=== PATIENT | male | born 1950 | race Caucasian/White ===

== ENCOUNTER 2024-09-24 10:07 | Outpatient (AMB) | payer MEDICARE, OTHER, SELFPAY ==
--- NOTE | 2024-09-24 10:36 | HO.NEPHOV_ITS ---
Vital Signs 09/24/24 10:38 Height 5 ft 11 in Weight 196 lb 4 oz BMI 27.4 BP 140/76 H Blood Pressure Location Lt brachial Position Sitting Pulse 76 Pulse Source Pulse Oximeter Pulse Oximetry (%) 99 Oxygen Delivery Method Room Air Intake Visit Reasons: 8 mon follow up-[facility] Leather Fitter Required: No Accompanied by: Self / Same As Patient Allergies lisinopril Allergy (Verified 09/24/24 10:38) Unknown oxycodone Allergy (Verified 09/24/24 10:38) Itching tramadol Allergy (Verified 09/24/24 10:38) Itching HPI Comments Details: I had the privilege of seeing Darwin in follow-up of his chronic kidney disease. He has amyloidosis and is on Vyndamax. He follows up closely with cardiologists in [place]. He has history of partial nephrectomy. He had a TURP procedure done for outlet obstruction. He denies nausea, vomiting, shortness of breath, fever, hematuria, orthostatic symptoms. He does not take any nonsteroidal anti- inflammatories. He maintains good hydration. He feels well. [facility] Medical History (Updated 08/13/24 @ 15:46 by Tammi Alba CNA) Chronic kidney disease, stage 3a Hypertension Surgical History History of prostate surgery History of kidney surgery History of back surgery History of left knee replacement History of total hip replacement History of shoulder surgery History of carpal tunnel release Family History Father Pancreatic cancer Social History Alcohol intake: never Patient Tobacco Use Status: Never used Tobacco Review of Systems Const All systems reviewed & are unremarkable except as noted in HPI and below Physical Exam Vital Signs: Last Vital Signs Pulse 76 09/24/24 10:38 BP 140/76 H 09/24/24 10:38 Pulse Ox 99 09/24/24 10:38 Oxygen Delivery Method Room Air 09/24/24 10:38 BMI result Body Mass Index 27.4 Const General: comfortable and no acute distress Orientation/consciousness: patient oriented x3 HEENT Head: Yes normocephalic Mouth: Normal oral and palatal mucosa present Eyes EOM: EOMs intact bilaterally Neck Neck: Yes supple Resp Auscultation: clear to auscultation bilaterally Cardio Jugular venous distension: no JVD Rate: regular rate GI Palpation (GI): Soft to palpation Auscultation: normal bowel sounds General: Yes no CVA tenderness Back/Spine/Pelvis Back: no CVA tenderness Skin General skin exam: no rashes or lesions noted Neuro General: patient oriented x3 and moves all extremities Extrem General: Yes no pedal edema Results Reviewed Nephrology Results: No Data to Display Assessment & Plan Assessment & Plan (1) Chronic kidney disease, stage 3a: Code(s): N18.31 - Chronic kidney disease, stage 3a Category: Medical (2) Hypertension: Code(s): I10 - Essential (primary) hypertension Category: Medical Qualifiers: Hypertension type: primary hypertension Qualified Code(s): I10 - Essential (primary) hypertension Plan Has chronic kidney disease stage 3. His renal functions are stable. He had extensive workup in the past has been negative. He is known to have amyloidosis and is on Vyndamax. 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 He follows up closely with Dr. Madrid. His blood pressure has been at goal. He avoids nonsteroidal anti-inflammatories and maintain good hydration. I did not make any medication changes today. Follow-up blood work ordered. Answered all questions. Orders: Orders Electrolytes 6 Months I10 - Essential (primary) hypertension, N18.31 - Chronic kidney disease, stage 3a Blood Urea Nitrogen 6 Months I10 - Essential (primary) hypertension, N18.31 - Chronic kidney disease, stage 3a Protein Creatinine Ratio, Ur 6 Months I10 - Essential (primary) hypertension, N18.31 - Chronic kidney disease, stage 3a Calcium 6 Months I10 - Essential (primary) hypertension, N18.31 - Chronic kidney disease, stage 3a Creatinine 6 Months I10 - Essential (primary) hypertension, N18.31 - Chronic kidney disease, stage 3a Coding Level of Care Code Est Pt Level 4 (10160) Diagnoses Chronic kidney disease, stage 3a N18.31 Primary hypertension I10 Hypertension type: primary hypertension
[2024-09-24 10:38] VITALS: BP 140/76; PULSE 76; O2SAT 99; BMI 27.4
--- OUTSIDE RECORDS SUMMARY | 2024-09-24 10:49 | XMS_ITS | Encounter Summary ---
Author Name [facility] Organization [facility] Address [address] [place] [id number] Care Team Providers Care Rn Neurology Name Role Phone HARRY OVALLES Primary Care Provider Unavailabl e Insurance Providers: All historical and current Section Date Range: From patient's date of to the date document was created. This section includes the names of all active insurance providers for the patient. Insurance Provider Type of Coverage Plan Name Start of Policy Coverage End of Policy Coverage Group Number Member ID Insurance Provider's Telephone Number Policy Treviño's Name Patient's Relationship to Policy Treviño [employer] [place] [employer] PREFERRED PROVIDER ORGANIZAT ION (PPO) BASIC FAMIL Y Nov 05, 2009 [id number] EVETTE WEAVER PATIENT [employer] BCBS PRESCRIPT ION CAREM ARK FEPRX PLAN Aug 06, 2010 [id number] EVETTE WEAVER PATIENT MEDICARE (WNR) MEDICARE (M) PART B May 01, 2017 PART B [id number] EVETTE WEAVER PATIENT MEDICARE (WNR) MEDICARE (M) PART A May 01, 2017 PART A [id number] EVETTE WEAVER PATIENT FOR LIFE TFL* May 01, 2017 [id number] EVETTE WEAVER PATIENT Selected Encounter This section includes the information on record at [place] for the Encounter. Date/Time Encounter Type Encounter Description Reason Provider Source Aug 20, 2024 08:30 AM THERAPEUTIC EXERCISES PHYSICAL THERAPY ICD-10-CM M25.562 Pain in left knee ALFONSO BISHOP I[facility] Encounter Template Text not used by [place] Assessments - Encounter Diagnoses This section includes the primary and secondary diagnoses documented for the Encounter. Date/Time Primary/Secondary Diagnosis Diagnosis Name Provider Source Aug 20, 2024 11:45 AM PRIMARY Pain in left knee ALFONSO BISHOP [facility] Plan of Treatment: Future Appointments (+ 6 months) and Future Tests (+/- 45 days) The Plan of Treatment section includes [facility] care activities for the [facility] This section includes future appointments and future orders which are active, pending or scheduled. Future Appointments This section includes appointments that were scheduled to occur 6 months from the date of the Encounter, up to a maximum of 20 appointments. The data comes from all [place] treatment facilities. Appointment Date/Time Appointment Type Appointme nt Facility Name September 04, 2024 01:00 PM [facility] September 17, 2024 01:00 [facility] Oct 01, 2024 09:00 AM [facility] Oct 02, 2024 09:30 AM [facility] Jan 21, 2025 08:30 AM [facility] Social History: Smoking Status (Most current) and Tobacco Use (All prior to encounter date) This section includes the most current, and the historical, smoking and tobacco- related health factors from the [place] facility where the Encounter took place. Current Smoking Status This section includes the most current smoking, or tobacco-related health factor, from the [place] facility where the Encounter took place. Date/Time Current Smoking Status Comment Ede fox Oct 06, 2023 08:30 AM PR-TOBACCO NEVER USED [facility] Tobacco Use History This section includes a history of the smoking, or tobacco-related health factors, that were collected on or before the date of the Encounter. The data comes from the [place] facility where the Encounter took place. Date/Time Smoking Status/Tobacco Use Comment F acility Oct 07, 2022 08:30 AM VA-TOBACCO NEVER USED [facility] Oct 01, 2021 09:00 AM VA-TOBACCO NEVER USED [facility] Oct 02, 2020 08:00 AM VA-TOBACCO NEVER USED [facility] [place] [facility] Aug 09, 2019 01:40 PM VA-TOBACCO NEVER USED [facility] [place] [facility] Jul 27, 2018 12:54 PM VA-TOBACCO NEVER USED [facility] [facility] Dec 01, 2016 08:59 AM LIFETIME NON-TOBACCO USER [facility] Nov 30, 2015 07:56 AM LIFETIME NON-TOBACCO USER [facility] Jun 14, 2007 08:32 AM LIFETIME NON-TOBACCO USER [facility] Encounter Notes: All associated encounter notes This section contains the clinical notes associated to the Encounter. Date/Time Encounter Note(s) Provider Source Aug 20, 2024 11:37 AM PHYSICAL THERAPY NOTE: LOCAL TITLE: PHYSICAL THERAPY STANDARD TITLE: PHYSICAL THERAPY NOTE DATE OF NOTE: AUG 20, 2024@11:37 ENTRY DATE: AUG 20, 2024@11:37:37 AUTHOR: PER BISHOP COSIGNER: URGENCY: STATUS: COMPLETED Initial Evaluation date: Progress Note Date: Treatment #:2 Treatment time: 30' Diagnosis: L knee pain Provider: Bill VERDUGO Treatment Precautions: H/o kidney CA, Prostate CA, Leukemia Patient identified by full name and date of SUBJECTIVE: States no change in symptoms, currently rates the pain at 2-3/10, the knee feels heavy at the end of the day, states that his current knee sleeves slides down to his ankle, has been doing his HEP OBJECTIVE: THERAPEUTIC EXERCISE: MINUTES: 30 mins Nu-step 10 mins L3 - Standing Hip Abduction with Counter Support - Standing Hip Extension with Counter Support - Standing Hip Abduction with Bent Knee - Alternating Step Forward with Support - Side Lunge with Counter Support - Standing Heel Raise with Support MANUAL THERAPY: MINUTES: GAIT TRAINING: MINUTES: NEUROMUSCULAR EDUCATION: MINUTES: OTHER: MINUTES: MODALITIES: MINUTES: [] Contraindication screen completed prior to modality [] Skin intact pre/post SELF CARE/EDUCATION: MINUTES: encouraged to use CP on the knee when his knee is sore at the end of the day Access Code: [email or web address] URL: [email or web address] / Date: 08/20/2024 Prepared by: [place] [facility] Exercises - Seated Hamstring Stretch - 3 x daily - 7 x weekly - 3 sets - 30 hold - Standing Quadriceps Stretch - 3 x daily - 3 sets - 30 hold - Quadricep Stretch with Chair and Counter Support - 3 x daily - 3 reps - 30 hold - Gastroc Stretch on Wall - 3 x daily - 3 reps - 30 hold - Standing Bilateral Gastroc Stretch with Step - 1 x daily - 7 x weekly - 3 sets - 10 reps - Small Range Straight Leg Raise - 1 x daily - 7 x weekly - 3 sets - 10 reps - Seated Piriformis Stretch - 1 x daily - 7 x weekly - 3 sets - 10 reps - Seated Knee Flexion Stretch - 1 x daily - 7 x weekly - 3 sets - 10 reps - Beginner Bridge - 1 x daily - 7 x weekly - 3 sets - 10 reps - Beginner Clam - 1 x daily - 7 x weekly - 3 sets - 10 reps - Sidelying Diagonal Hip Abduction - 1 x daily - 7 x weekly - 3 sets - 10 reps - Standing Hip Abduction with Counter Support - 1 x daily - 7 x weekly - 3 sets - 10 reps - Standing Hip Extension with Counter Support - 1 x daily - 7 x weekly - 3 sets - 10 reps - Standing Hip Abduction with Bent Knee - 1 x daily - 7 x weekly - 3 sets - 10 reps - Alternating Step Forward with Support - 1 x daily - 7 x weekly - 3 sets - 10 reps - Side Lunge with Counter Support - 1 x daily - 7 x weekly - 3 sets - 10 reps - Standing Heel Raise with Support - 1 x daily - 7 x weekly - 3 sets - 10 reps Patient education was provided for all aspects of care during this clinical encounter. ASSESSMENT: Tolerated session well, no c/o increase discomfort, only some mm fatigue PLAN: Pt to be seen 1-2x/week for 4-8 weeks. POC to include: PRECAUTION: active CA no Estim- heat and ice to knee okay next visit begin strengthening for quad and hip - standing incorporate balance, monitor pain response review stretching HEP instruction /es/ MONIK ARANGO LICENSE INSURANCE CLAIMS ASSISTANT Signed: 08/20/2024 11:46 [facility]
== END 2024-09-24 11:05 | disposition home or self-care (01) ==
LOC: HO.HKAS 10:07
PROVIDERS: PCP Nurse Practitioner Family; Visit Provider Internal Medicine Nephrology
DX: N18.31 Chronic kidney disease, stage 3a (principal); I10 Essential (primary) hypertension
CPT/HCPCS: 99214

== ENCOUNTER → 2024-09-24 10:07 | Outpatient (BNVA) | payer MEDICARE, OTHER, SELFPAY | PROVIDERS: PCP Nurse Practitioner Family; Visit Provider Internal Medicine Nephrology | DX: I12.9 Hypertensive chronic kidney disease with stage 1 through stage 4 chronic kidney disease, or unspecified chronic kidney disease (principal); N18.31 Chronic kidney disease, stage 3a | CPT/HCPCS: 99212 ==

== ENCOUNTER 2025-03-25 11:29 | Outpatient (AMB) | payer MEDICARE, OTHER, SELFPAY ==
--- NOTE | 2025-03-25 11:50 | HO.NEPHOV ---
Vital Signs 03/25/25 11:51 Height 5 ft 11 in Weight 190 lb 8 oz BMI 26.6 BP 140/90 H Blood Pressure Location Lt brachial Position Sitting Pulse 63 Pulse Source Pulse Oximeter Pulse Oximetry (%) 100 Oxygen Delivery Method Room Air Intake Visit Reasons: 6 mo follow up-[facility] Program Coordinator For Residence Life Required: No Accompanied by: Spouse Allergies lisinopril Allergy (Verified 03/25/25 11:51) Unknown oxycodone Allergy (Verified 03/25/25 11:51) Itching tramadol Allergy (Verified 03/25/25 11:51) Itching HPI Comments Details: I had the privilege of seeing Darwin in follow-up of his chronic kidney disease. He has amyloidosis and is on Vyndamax. He follows up closely with cardiologists in [place]. He has history of partial nephrectomy. He had a TURP procedure done for outlet obstruction. He denies nausea, vomiting, shortness of breath, fever, hematuria, orthostatic symptoms. He does not take any nonsteroidal anti-inflammatories. He maintains good hydration. He feels well. [facility] Medical History (Updated 08/13/24 @ 15:46 by Tammi Alba CNA) Chronic kidney disease, stage 3a Hypertension Surgical History History of prostate surgery History of kidney surgery History of back surgery History of left knee replacement History of total hip replacement History of shoulder surgery History of carpal tunnel release Family History Father Pancreatic cancer Social History Alcohol intake: never Patient Tobacco Use Status: Never used Tobacco Review of Systems Const All systems reviewed & are unremarkable except as noted in HPI and below Physical Exam Vital Signs: Last Vital Signs Pulse 63 03/25/25 11:51 BP 140/90 H 03/25/25 11:51 Pulse Ox 100 03/25/25 11:51 Oxygen Delivery Method Room Air 03/25/25 11:51 BMI result Body Mass Index 26.6 Const General: comfortable and no acute distress Orientation/consciousness: patient oriented x3 HEENT Head: Yes normocephalic Mouth: Normal oral and palatal mucosa present Eyes EOM: EOMs intact bilaterally Neck Neck: Yes supple Resp Auscultation: clear to auscultation bilaterally Cardio Jugular venous distension: no JVD Rate: regular rate GI Palpation (GI): Soft to palpation Auscultation: normal bowel sounds General: Yes no CVA tenderness Back/Spine/Pelvis Back: no CVA tenderness Skin General skin exam: no rashes or lesions noted Neuro General: patient oriented x3 and moves all extremities Extrem General: Yes no pedal edema Assessment & Plan Assessment & Plan (1) Chronic kidney disease, stage 3a: Code(s): N18.31 - Chronic kidney disease, stage 3a Category: Medical (2) Hypertension: Code(s): I10 - Essential (primary) hypertension Category: Medical Qualifiers: Hypertension type: primary hypertension Qualified Code(s): I10 - Essential (primary) hypertension Plan Has chronic kidney disease stage 3. His renal functions are stable. He had extensive workup in the past has been negative. He is known to have amyloidosis and is on Vyndamax. 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 He follows up closely with Dr. Madrid. His blood pressure has been at goal. He avoids nonsteroidal anti-inflammatories and maintain good hydration. I did not make any medication changes today. Follow-up blood work ordered. Answered all questions. Orders: Orders Blood Urea Nitrogen 7 Months I10 - Essential (primary) hypertension, N18.31 - Chronic kidney disease, stage 3a Creatinine 7 Months I10 - Essential (primary) hypertension, N18.31 - Chronic kidney disease, stage 3a Electrolytes 7 Months I10 - Essential (primary) hypertension, N18.31 - Chronic kidney disease, stage 3a Coding Level of Care Code Est Pt Level 4 (66771) Diagnoses Chronic kidney disease, stage 3a N18.31 Primary hypertension I10 Hypertension type: primary hypertension
[2025-03-25 11:51] VITALS: BP 140/90; PULSE 63; O2SAT 100; BMI 26.6
--- OUTSIDE RECORDS SUMMARY | 2025-03-25 15:12 | XMS_ITS | Encounter Summary ---
Author Organization [employer] Address [address] [place] [address] Care Team Providers Care Wildlife Ecology Professor Name Role Phone Florinda Harris SILK SCREEN PAINTER Primary Care Provider Unavailabl e Encounter Details Date Type Department Care Team (Late st Contact Info) Description 03/06/2025 Orders Only [facility] [address] [place] [address] Florinda Harris NP Social History Tobacco Use Types Packs/Day Years Used Date Smoking Tobacco: Never Passive Smoke Exposure: Never Smokeless Tobacco: Never Alcohol Use Standard Drinks/Week Comments Not Currently 0 (1 standard drink = 0.6 oz pure alcohol) Drinks a few beers 1-2 times per year. Alcohol Answer Date Recorded How often do you have a drink containing alcohol ? 0 07/27/2023 How many drinks containing a lcohol do you have on a typical day when you are drinking? 0 07/27/2023 How often do you have six or more drinks on one occasion? 0 07/27/2023 Housing Stability Answer Date Recorded What is your housing situation today? I have kd wallace 04/27/[address] you li ve. Do you have problems with any of the following? None of the above 04/27/2023 Food Insecurity Answer Date Recorded Within the past 12 months, y ou worried that your food would run out before you got money to buy more: Never True 04/27/2023 Within the past 12 months,th e food you bought just didn't last and you didn't have enough money to get more: Never True Transportation Answer Date Recorded In the past 12 months, has l ack of transportation kept you from medical appts, meetings, work or from getting things needed for daily living? No 04/27/2023 Intimate Partner Violence Answer Date R ecorded Within the last year, have y ou been afraid of your partner or ex-partner? 2 07/27/2023 Within the last year, have y ou been humiliated or emotionally abused in other ways by your partner or ex-partner? 2 Within the last year, have y ou been kicked, hit, slapped, or otherwise physically hurt by your partner or ex-partner? 2 07/27/2023 Within the last year, have y ou been raped or forced to have any kind of sexual activity by your partner or ex-partner? 2 07/27/2023 Utilities Answer Date Recorded In the past 12 months, has t he electric, gas, oil or water company threatened to shut off services in your home? No 04/27/2023 Depression Answer Date Recorded Patient Health Questionnaire-2 Score 0 04/04/2024 Internet Access Answer Date Recorded Internet Access Q1 Yes 04/04/2024 Internet Access Q2 Not on file 04/04/2024 Education Answer Date Recorded What is the highest level of school you have completed or the highest degree you have received? High school graduate 07/27/2023 Sex and Gender Information Value Date Recorded Sex Assigned at Male 04/26/2022 2:27 PM EST Legal Sex Male 8:37 PM EDT Gender Identity Male 04/26/2022 2:27 PM EST Sexual Orientation Straight 05/31/2022 6: 43 PM EST Occupation Industry Job Start Date Job End Date Retired Not on file Not on file Not on file documented as of this encounter Plan of Treatment Not on file documented as of this encounter Procedures Procedure Name Priority Date/Time Associated Diagnosis Comments EMG Routine 03/05/2025 10:10 AM EST documented in this encounter Results * EMG (03/05/2025 10:10 AM EST) Florinda Harris NP NEUROLOGY ORDERABLES Final Resul t documented in this encounter Visit Diagnoses Not on filedocumented in this encounter Care Teams Wildlife Ecology Professor Relationship Specialty Start Date End Date Florinda Harris NP PCP - General Family Medicine 02/28/25 documented as of this encounter
--- OUTSIDE RECORDS SUMMARY | 2025-03-25 15:13 | XMS_ITS | Encounter Summary ---
Author Organization [employer] Address [address] [place] [address] Care Team Providers Care Teacher Of The Hearing Impaired Name Role Phone Florinad Harris NP Primary Care Provider Unavailabl e Carmen Gibbs DO Primary Care Provider [phone] PcpAshley Unassigned Primary Care Provider U Florinda Marquez NP Primary Care Provider Unavailabl e Reason for Visit * Reason Comments Med Refill Encounter Details Date Type Department Care Team (Late st Contact Info) Description 09/13/2023 Refill Ashley [facility] MED[facility] [address] [place] [address] Florinda Harris NP Renovascular hypertension Social History Tobacco Use Types Packs/Day Years [...] Date Recorded Patient Health Questionnaire-2 Score 0 04/27/2023 Education Answer Date Recorded What is the [...] on file documented as of this encounter Visit Diagnoses Diagnosis 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
--- OUTSIDE RECORDS SUMMARY | 2025-03-25 15:13 | XMS_ITS | Clinical Summary ---
Author Organization [facility] Address [address] [facility] [address] [place] [address] Phone Care Team Providers Care Gantry Rigger Name Role Phone Tinojuan pabloFlorinda GRINDER SETUP OPERATOR-C Primary Care Provider [phone] Allergies Active Allergy Reactions Criticality Noted Date Comments Lisinopril Other (see comments) Medium 01/11/2018 Uvular swelling Oxycodone Itching Low 06/01/2020 itchiness Tramadol Itching Low 06/01/2020 itchiness Medications rosuvastatin (CRESTOR) 40 MG tablet Take 1 tablet by mouth 1 (one) time each day 02/14/2020 Active Vyndamax 61 MG capsule Take 1 tablet by mouth 1 (one) time each day 01/10/2022 Active losartan (COZAAR) 100 MG tablet Take 100 mg by mouth 1 (one) time each day Active chlorthalidone (HYGROTEN) 15 MG tablet Take 12.5 mg by mouth 1 (one) time each day Active Active Problems Problem Noted Date Diagnosed Date Hypokalemia 04/26/2022 Overview (05/30/2022): 04/06/22 3.2 04/11/22 3.6 after repletion. Last Assessment & Plan: 04/06/22 3.2 04/11/22 3.6 after repletion. Will repeat today. Preprocedural examination done 04/06/2022 Overview (05/30/2022): Last Assessment & Plan: Pt stable, at baseline. Chronic conditions well managed. Prior surgeries reviewed, no surgical/anesthesia complications. Will order labs per surgeons written request. EKG from 11/2021 reviewed, NSR with PVCs. Engaged with cardiology annually. Alas risk calculator 0.1%. - Low risk for cardiopulmonary complications. Advised patient to do best to stay healthy prior to surgery - mask in public, avoid sick contacts, frequent handwashing. Bilateral age-related nuclear cataracts 04/01/20 Bilateral myopia of eyes 04/01/2022 COVID-19 04/01/2022 Drug-induced immunodeficiency 04/01/2022 H/O: artificial joint 04/01/2022 History of risk factor 04/01/2022 Leukemia 04/01/2022 Organ-limited amyloidosis 04/01/2022 Presbyopia 04/01/2022 Presence of left artificial knee joint 2 Hypertension 04/26/2021 Benign prostatic hyperplasia 03/01/2021 Stage 3a chronic kidney disease 06/01/2020 Hypertensive disorder 06/01/2020 Overview (06/01/2020): on Linisopril-HCTZ Renal insufficiency 06/01/2020 Malignant tumor of kidney 07/10/2019 Renal cell carcinoma 03/21/2019 Overview (06/05/2020): Dr. Holguin History of malignant neoplasm of kidney 03/21/20 19 Overview (01/21/2022): Dr. Holguin Cardiomyopathy 09/05/2018 Overview (08/13/2020): TTR genetic mutation positive; brother with initial diagnosis TTR genetic mutation positive; brother with initial diagnosis H/O: musculoskeletal disease 01/28/2013 Overview (08/13/2020): S/p laminectomy in ?1999. 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 Dr Torres Other and unspecified hyperlipidemia 01/28/2013 08/13/2020 Adenomatous polyp of colon 11/12/2012 0 08/13/2020 Overview (06/01/2020): Repeat colonoscopy due 3 years Immunizations Immunization Administration Dates Next Due Influenza Split High Dose Pr eservative Free IM 02/01/2022,01/28/2021,01/16/2020,01/07,02/15/2018 Influenza TIV (IM) 01/19/2016, 3,03/06/2012,03/17,03/11/2010 Influenza, MDCK, Quadrivalen t, with preservative 01/11/2017 Moderna SARS-COV-2 02/01/2022, 2,03/21/2021,03/20,07/11/2020,06/13/2020 Pneumococcal Conjugate 13-Valent 07/13/2017 Pneumococcal Polysaccharide 11/20/2020, 3 Tdap 07/27/2012 Zoster 05/01/2012 Family History Medical History Relation Comments Cancer Father pancreatic cance r Heart disease Sibling 1 Hypertension Sibling 2 Relation Status Comments Father Mother Sibling 1 Sibling 2 Social History Tobacco Use Types Packs/Day Years Used Date Smoking Tobacco: Never Smokeless Tobacco: Never Alcohol Use Standard Drinks/Week Comments Not Currently 0 (1 standard drink = 0.6 oz pure alcohol) Alcoholic Drinks/day: Occasional social drink Sex and Gender Information Value Date Recorded Sex Assigned at Not on file Legal Sex Male 4:58 PM EST Gender Identity Not on file Sexual Orientation Not on file Last Filed Vital Signs Vital Sign Reading Time Taken Comments Blood Pressure 140/80 01/03/2023 1:22 PM EDT Pulse 70 01/03/2023 1:22 PM EDT Temperature 36.2 C (97.2 F) 06/05/2020 10:38 AM EST Respiratory Rate 16 06/05/2020 10:3 8 AM EST Oxygen Saturation 97% 01/25/2022 1:02 PM EDT Inhaled Oxygen Concentration - - Weight 85.6 kg (188 lb 12.8 oz) 01/03/2023 1:22 PM EDT Height 180.3 cm (5' 11 ) 06/05/2020 10: 38 AM EST Body Mass Index 26.33 06/05/2020 10:38 AM EST Plan of Treatment Health Maintenance Due Date Last Done Comments Colorectal Cancer Screening: Annual FOBT 2001 Colorectal Cancer Screening: Colonoscopy 2001 Colorectal Cancer Screening: Sigmoidoscopy 2001 Influenza Vaccine (#1) 2024 2, 01/28/2021, 01/16/2020, Additional history exists Pneumococcal Vaccine: 50+ Years Completed 11/20/2020, 07/13/2017, 07/27/2012 Pneumococcal Vaccine: Peds (0 to 5 Years) and At-Risk Patients (6 to 49 Years) Discontinued 11/20/2020, 07/13/2017, 07/27/2012 Hepatitis B Vaccine Aged Out No longe r eligible based on patient's age to complete this topic Insurance Medicare Medicare Care Teams Gantry Rigger Relationship Specialty Start Date End Date Florinda Harris NP-C [address] [place] [id number] PCP - General 01/25/22
--- OUTSIDE RECORDS SUMMARY | 2025-03-25 15:13 | XMS_ITS | Encounter Summary ---
Author Organization [employer] Address [address] [facility] [place] [address] Care Team Providers Care Accessibility Lift Technician Name Role Phone Florinda Harris NP Primary Care Provider Unavailabl e Carmen Gibbs DO Primary Care Provider [phone] PcpAshley Unassigned Primary Care Provider U saskiaailFlorinda Mancilla NP Primary Care Provider Unavailabl e Reason for Visit * Reason Onset Date Comments Med Refill 09/17/2023 Encounter Details Date Type Department Care Team (Late st Contact Info) Description 09/17/2023 Refill Ashley [facility] [address] [place] [address] Florinda Harris NP Renovascular hypertension Social History [...] the past 12 months, has t he [employer], gas, oil or water company threatened to [...] unspecified documented in this encounter Care Teams Accessibility Lift Technician Relationship Specialty Start Date End Date Florinda Harris NP PCP - General Family Medicine 04/26/22 02/16/25 Carmen Gibbs DO [address] [place] [id number] PCP - General Ground Crewman Aircraft Support 02/17/25 02/23/25 Ashley Mckeon Unassigned PCP - General Family Medicine 02/24/25 5 Florinda Harris NP PCP - General Family Medicine 02/28/25 documented as of this encounter
--- OUTSIDE RECORDS SUMMARY | 2025-03-25 15:13 | XMS_ITS | Clinical Summary ---
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 Active Cholecalciferol (Vitamin D3) 1000 units capsule Take 1 capsule by mouth Once daily. Active losartan (Cozaar) 100 MG tabletIndication s:Renovascular hypertension TAKE 1 TABLET(100 MG) BY MOUTH IN THE MORNING 90 tablet 01/07/20 25 Active rosuvastatin (Crestor) 40 MG tabletIndication s:High cholesterol TAKE 1 TABLET(40 MG) BY MOUTH DAILY 90 tablet 01/07/20 25 Active chlorthalidone (Hygroton) 25 MG tabletIndication s:Renovascular hypertension Take 0.5 tablets (12.5 mg) by mouth Once per day. 45 tablet 3 03/05/20 25 Active chlorthalidone (Hygroton) 25 MG tabletIndication s:Renovascular hypertension TAKE 1/2 TABLET(12.5 MG) BY MOUTH IN THE MORNING 45 tablet 12/03/19 25 025 Discontinued Active Problems Problem Noted Date Diagnosed Date Dysuria 04/04/2024 Overview (04/04/2024): Patient seen by urology for UTI on 03/25 and treated with ciprofloxacin x 5 days. Patient reports that burning with urination has not resolved. Urinalysis in clinic today not indicative of UTI; we will send for culture. Patient encouraged to follow-up with UTI. Blood in stool 04/04/2024 Overview (04/04/2024): Patient reports small amount of bright red blood per rectum with stooling every 2-3 weeks. No pain or cramping, no lightheadedness. Advised to keep food diary. Discussed red flag symptoms that would necessitate ED visit. Last colonoscopy in 2022, unable to access records. We will refer to GI. Routine general medical exam ination at a health care facility 05/15/2023 Overview (05/15/2023): CPE done 04/27/23 HEALTH CARE MAINTENANCE: Colonoscopy (age 45-75): Cscope 02/23/23. Had a few polyps - 5 year recall. AAA Screen (age 65-75, ever smoked): 08/19/22 MR abdomen - no AAA. LDCT (smoke >30 pack year, age 55-80): Never smoker. DEXA (age 70): Has not been done. IMMUNIZATIONS: Tetanus (every 10 years): 12/02/2022 - Done at NH. Pneumococcal (age 65): x 3 Shingrix (age 50): x2, 2012. COVID: Moderna x 6, last done 01/2023. FLU: Done 01/2023. All health care maintenance and immunizations reviewed, as above. BMI 26.0-26.9,adult 09/16/2022 Overview (09/16/2022): Diet and exercise counseling done 09/16/22. Assessment & Plan (09/30/2022 9:30 AM EDT): I recommend incorporating a variety of fruits, vegetables, whole grains, lean proteins, and healthy fats into your diet. It's important to limit consumption of processed foods, added sugars, and unhealthy fats. By making small but sustainable changes to your diet, you can improve your overall health and reduce the risk of chronic disease. I encourage you to keep a food diary to track your intake and identify areas for improvement. Additionally, focusing on portion sizes, mindful eating, and overcoming barriers to healthy eating can help you achieve your dietary goals. Incorporating both aerobic and strength-training exercises into your routine can help you burn calories, build muscle, and improve cardiovascular health. Aim for at least 150 minutes of moderate-intensity aerobic exercise per week, such as brisk walking or cycling, and two days of strength-training exercises targeting major muscle groups. It's important to find an exercise routine that you enjoy and can stick with long-term. Start slowly and gradually increase intensity and duration over time. Additionally, incorporating physical activity into your daily routine, such as taking the stairs instead of the elevator or walking instead of driving for short trips, can help increase overall activity levels. Assessment & Plan (09/16/2022 9:36 AM EDT): I recommend incorporating a variety of fruits, vegetables, whole grains, lean proteins, and healthy fats into your diet. It's important to limit consumption of processed foods, added sugars, and unhealthy fats. By making small but sustainable changes to your diet, you can improve your overall health and reduce the risk of chronic disease. I encourage you to keep a food diary to track your intake and identify areas for improvement. Additionally, focusing on portion sizes, mindful eating, and overcoming barriers to healthy eating can help you achieve your dietary goals. Incorporating both aerobic and strength-training exercises into your routine can help you burn calories, build muscle, and improve cardiovascular health. Aim for at least 150 minutes of moderate-intensity aerobic exercise per week, such as brisk walking or cycling, and two days of strength-training exercises targeting major muscle groups. It's important to find an exercise routine that you enjoy and can stick with long-term. Start slowly and gradually increase intensity and duration over time. Additionally, incorporating physical activity into your daily routine, such as taking the stairs instead of the elevator or walking instead of driving for short trips, can help increase overall activity levels. Elevated liver enzymes 04/26/2022 Hypokalemia 04/26/2022 Overview (04/26/2022): 04/06/22 3.2 04/11/22 3.6 after repletion. Assessment & Plan (04/26/2022 3:26 PM EST): 04/06/22 3.2 04/11/22 3.6 after repletion. Will repeat today. Lipoma 04/22/2022 Overview (04/22/2022): IMO update Other specified cardiac dysrhythmias(427.89) Pain in joint, ankle and foot 04/22/2022 Peritonsillar abscess 04/22/2022 Preop examination 04/06/2022 Assessment & Plan (04/06/2022 3:01 PM EST): Pt stable, at baseline. Chronic conditions well managed. Prior surgeries reviewed, no surgical/anesthesia complications. Will order labs per surgeons written request. EKG from 11/2021 reviewed, NSR with PVCs. Engaged with cardiology annually. Alas risk calculator 0.1%. - Low risk for cardiopulmonary complications. Advised patient to do best to stay healthy prior to surgery - mask in public, avoid sick contacts, frequent handwashing. Age-related nuclear cataract of both eyes 2021 Cardiomyopathy 04/01/2022 Overview (07/27/2023): Dr. Garcia - Cardiology. Next appointment 08/31. Denies any cardiac symptoms. Has echo prior to appointments. 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 Tx: Didn't require treatment until 06/2020. Had chemotherapy until 06/2021. Seen by Heme/Onc - Dr. Barbour at [facility], last seen 01/31/2023. Next follow up 08/02/23. FU [facility] 08/02/23: continue to monitor blood counts, kidney function, electrolytes. fu 6 mo. Turp procedure 06/2022 revealed acinar adenocarcinoma of prostate ph[place] 6, prostate biopsy 01/21 revealed prostate adenocarcinoma [place] 9. No evidence in metastatic work up with ct abd/pelvis and bone scan. ADT 02/20 followed by external beam radiotherapy from 04/22 to 06/20/23. PSA has come down to 0.01. HE will FU w/ urology. Also follows up for cardiac amyloidosis at [facility]. High cholesterol 04/01/2022 Overview (04/04/2024): Continues taking rosuvastatin, no longer having muscle aches. We will continue with current treatment plan at this time. Presence of both artificial hip joints Presbyopia of both eyes 04/01/2022 Organ-limited amyloidosis (CMS/HCC) 04/01/2022 Overview (07/27/2023): Engaged with [facility] in [place]. Has annual monitoring there. On Vyndamax - tolerating well. Myopia of both eyes 04/01/2022 Neuropathy 04/01/2022 HTN (hypertension) 04/01/2022 Overview (04/04/2024): BP Readings from Last 4 Encounters: 04/04/24 (!) 146/78 07/27/23 (!) 148/87 04/27/23 (!) 166/95 12/07/22 120/80 Creat 1.5 on hydrochlorothiazide. Stopped 04/21/22. Started on Amlodipine 10mg - having LE edema. Allergy to Lisinopril - started on Losartan. LE edema resolved. BP above goal today. Reports that home Bps have been near goal, 130's/70's. We will continue with current treatment at this time. Assessment & Plan (12/07/2022 9:55 AM EDT): Bp at goal. Will continue current treatment plan. Will monitor lightheadedness and continue to discuss. Assessment & Plan (10/19/2022 11:24 AM EDT): BP Readings from Last 3 Encounters: 10/19/22 142/85 09/30/22 (!) 161/97 09/16/22 138/88 BP improved, was at goal at home and at [facility]. Will continue current treatment plan. Assessment & Plan (09/30/2022 9:30 AM EDT): BP Readings from Last 3 Encounters: 09/30/22 (!) 161/97 09/16/22 138/88 09/02/22 140/84 BP remains above goal on max dose Losartan. Discussed options - will start Chlorthalidone. Reviewed medication, administration, and potential side effects. Assessment & Plan (09/16/2022 9:29 AM EDT): BP Readings from Last 3 Encounters: 09/16/22 170/80 09/02/22 140/84 06/01/22 132/80 BP remains elevated. No side effects from Losartan. Will increase Losartan to 100mg. Reviewed medication, administration, and potential side effects. Assessment & Plan (09/02/2022 9:42 AM EDT): Having bilateral mild LE edema on Amlodipine. Had isolated uvula swelling on Lisinopril - but also had tonsillar abscess at the same time. Will trial Losartan - reviewed medication, administration, and potential side effects. Will RTC in 2 weeks for BP check. Assessment & Plan (06/01/2022 5:33 PM EST): On Amlodipine. BP at goal today. Will continue current treatment plan. Assessment & Plan (04/26/2022 3:21 PM EST): Stopped hydrochlorothiazide s/t Creatinine 1.5. Started on Amlodipine - tolerating well without any side effects. BP at goal today and has been good on checks at home. Will continue current treatment plan. Presence of left artificial knee joint 2 Drug-induced immunodeficiency 04/01/2022 Renal insufficiency 06/01/2020 Stage 3a chronic kidney disease (CMS/HCC) 2020 Overview (02/21/2024): Images from the original note were not included. Engaged with nephrology - Dr. Clayton. Keith. 12/2023 Renal note: Assessment & Plan (06/01/2022 5:32 PM EST): Saw renal last week. Pt reports that at renal appointment creatinine was back down to 1.1 since long cath placement - reports drafter seismograph said increased creatinine was due to reflux of urine from bladder to kidney. Assessment & Plan (04/26/2022 3:22 PM EST): 04/21 Creat increased from 1.2 to 1.5. Pt called drafter seismograph to notify. Prostate cancer (CMS/HCC) 07/11/2019 Overview (07/27/2023): Engaged with [facility]. Completed Radiation - Dr. Shelton at [facility] - started Monday04/25/23. 5x/week x 8 weeks. Has Urology Oncology appointment next week. Having PSA checked today. Assessment & Plan (09/02/2022 11:19 AM EDT): Voiding well. Personal history of renal cell carcinoma 019 Overview (07/27/2023): Dx: 06/2019. Had partial nephrectomy. Tx: No chemo/radiation. Engaged with [facility] - 01/2023 for scans/labs. All clear. Next follow up 01/2024. 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 Has follow up 12/2023. 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 Done 01/2023 - did not hear about results. No results available at this time. Resolved Problems Problem Noted Date Diagnosed Date Resolved Date Benign prostatic hyperplasia 04/01/2022 12/07/2022 Overview (04/06/2022): 10/2021 PSA 6.2. Assessment & Plan (04/06/2022 3:35 PM EST): Seen by [facility] urology. Pt reports they repeated the PSA and has improved. Next appointment in July 2022. COVID 04/01/2022 06/01/2022 CLL (chronic lymphocytic leukemia) 07/03/2019 07/27/2023 Malignant neoplasm of kidney (CMS/HCC) 05/28/2019 12/07/2022 Enlarged prostate 04/25/2017 12/07/2022 Overview (06/01/2022): Engaged with urology. Unable to void after back surgery 05/04/2022, needed lnog cath placed. Failed multiple long cath removal trials. Now has indwelling long until TURP in June. Assessment & Plan (06/01/2022 5:30 PM EST): Reviewed care of indwelling long catheter. Reviewed S/S UTI, when to call urology. Encounters Date Type Department Care Team Description 03/06/2025 Orders Only [facility] Information Management [address] [place] [address] Florinda Harris NP 03/03/2025 Refill [facility] [address] [place] [address] Karen Pena FNP Renovascular hypertension (Primary Dx) 01/04/2025 Refill [facility] [address] [place] [address] Misty Brizuela CNP Renovascular hypertension; High cholesterol from Last 3 Months Immunizations Immunization Administration Dates Next Due INFLUENZA INJECTABLE QUADRIV ALANT CCIIV4 MDCK Multi-dose vial 01/11/2017 Influenza High-dose Quadriva lent Preservative Free 02/01/2022,01/28/2021,01/16/2020 Influenza Quadrivalent Adjuvanted 02/19/2023 Influenza, High Dose Seasona l, Preservative Free 02/01/2022,01/28/2021,01/07/2019,02/15 Influenza, IIV3, injectable 01/19/2016,0 01/28/2013,03/06/2012,03/17,03/11/2010 Moderna Covid-19 Vaccine 12+ 02/19/2023, 02/01/2022,10/01/2021,03/20,07/11/2020,06/13/2020 Moderna Covid-19 Vaccine 6+ Bivalent 02/01/2022 Pneumococcal Conjugate PCV 13 07/13/2017 Pneumococcal Polysaccharide PPSV23 11/20/2020, RSV Bivalent 04/17/2023 Tdap 07/27/2012 Zoster, live 05/01/2012,05/01/2012 Family History Medical History Relation Name Comments No Known Problems Brother 1 Amyloid cardiomyopathy Brother 2 No Known Problems Daughter Pancreatic cancer Father Age 68 Heart failure Mother Age 89 No Known Problems Son Relation Name Status Comments Brother 1 Alive Brother 2 Alive Daughter Father Mother Son Social History Tobacco Use Types Packs/Day Years Used Date Smoking Tobacco: Never Passive Smoke Exposure: Never Smokeless Tobacco: Never Tobacco Cessation:Counseling Given: Not Answered Alcohol Use Standard Drinks/Week Comments Not Currently [...] file Not on file Not on file Last Filed Vital Signs Vital Sign Reading Time Taken Comments Blood Pressure 146/78 04/04/2024 12:04 PM EST Pulse 75 04/04/2024 12:04 PM EST Temperature 36.8 C (98.3 F) 04/04/2024 12:04 PM EST Respiratory Rate 16 04/04/2024 12:04 PM EST Oxygen Saturation 99% 07/27/2023 7:54 AM EDT Inhaled Oxygen Concentration - - Weight 86.8 kg (191 lb 6.4 oz) 04/04/2024 12:04 PM EST Height 180.3 cm (5' 11 ) 04/04/2024 12:04 PM EST Body Mass Index 26.69 04/04/2024 12:04 PM EST Plan of Treatment Health Maintenance Due Date Last Done Comments CT Colonography 1952 FIT DNA/Cologuard 1952 FIT 1952 FOBT 1950 Sigmoidoscopy 1952 Alcohol/Substance Use Screening 1964 Tobacco Screening 07/26/2024 07/27/2023 Depression Screening 04/04/2025 04/04/2024, 04/04/20 SDOH Screening 04/04/2025 04/04/2024 COVID-19 Vaccine (11 - Moderna risk season) 2025 01/27/2025, 02/09/2024, 10/06/2023, Additional history exists Lipid Panel 07/26/2028 07/27/2023, 04/01, 11/23/2021, Additional history exists DTaP/Tdap/Td Vaccines (4 - Td or Tdap) 10/07/2032 10/07/2022, 07/27/2012, 01/29/1998, Additional history exists Colonoscopy 11/19/2034 11/19/2024 Colorectal Cancer Screening 11/19/2034 Pneumococcal Vaccine: 50+ Years Completed 11/20/2020, 07/13/2017, 07/27/2012 Hepatitis C Screening Completed 11/23/2021, 022 Zoster Vaccines Completed 12/21/2021, 06/2021, 05/01/2012, Additional history exists RSV Patients and Patients Aged 60 years or older Completed 04/17/2023 Influenza Vaccine Completed 01/27/2025, , 02/08/2024, Additional history exists HIB Vaccines Aged Out No longer eligi ble based on patient's age to complete this topic HPV Vaccines Aged Out No longer eligi ble based on patient's age to complete this topic Hepatitis A Vaccines Aged Out No long er eligible based on patient's age to complete this topic Hepatitis B Vaccines Aged Out No long er eligible based on patient's age to complete this topic IPV Vaccines Aged Out No longer eligi ble based on patient's age to complete this topic Meningococcal B Vaccine Aged Out No l onger eligible based on patient's age to complete this topic Meningococcal Vaccine Aged Out No jessica arielle eligible based on patient's age to complete this topic RSV under 20 months Aged Out No longe r eligible based on patient's age to complete this topic Rotavirus Vaccines Aged Out No longer eligible based on patient's age to complete this topic Procedures Procedure Name Priority Date/Time Associated Diagnosis Comments EMG Routine 03/05/2025 10:10 AM EST LIPID PANEL, STANDARD Routine 07/27/2023 8:55 AM EDT High cholesterol ZZZ HISTORICAL HEPATITIS C ANTIBODY TEST Routine 11/23/2021 8:44 AM EDT from Last 3 Months or Most Recently Relevant to Health Maintenance Results * EMG (03/05/2025 10:10 AM EST) Florinda Harris NP NEUROLOGY ORDERABLES Final Resul t * (ABNORMAL) Lipid Panel, Standard (07/27/2023 8:55 AM EDT) Cholesterol, Total 173 100 - 199 mg/dL [facility] Triglycerides 160(H) 0 - 149 mg/dL [facility] HDL Cholesterol 52 >39 mg/dL [facility] 1 VLDL Cholesterol [place] 28 5 - 40 mg/dL [facility] 1 LDL Chol Calc (NIH) 93 0 - 99 mg/dL [facility] 1 Blood Venous blood specimen / Unknown 07/27/2023 8:55 AM EDT 07/27/2023 Narrative [facility] 1 - 07/28/2023 6:05 AM EDT Performed at: 01 - [facility] [id number] Tinning Equipment Tender: Margaret Vazquez MD, Phone: [phone] Florinda Harris NP LAB BLOOD ORDERABLES Final Resul t [facility] * -Hepatitis C Antibody Test (11/23/2021 8:44 AM EDT) ANTI-HEPATITIS C NEGATIVE (NEG) [facility] Comment: Reference range: Negative This test was performed on the [employer] immunoassay system. 11/23/2021 8:44 AM EDT us Florinda Harris NP HISTORICAL/NON ORDERABLE LABS Fi nal Result [facility] [address] from Last 3 Months or Most Recently Relevant to Health Maintenance Insurance MEDICARE [facility] 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
== END 2025-03-25 12:11 | disposition home or self-care (01) ==
LOC: HO.HKAS 11:29
PROVIDERS: PCP Nurse Practitioner Family; Visit Provider Internal Medicine Nephrology
DX: N18.31 Chronic kidney disease, stage 3a (principal); I10 Essential (primary) hypertension
CPT/HCPCS: 99214

== ENCOUNTER → 2025-03-25 11:29 | Outpatient (BNVA) | payer MEDICARE, OTHER, SELFPAY | PROVIDERS: PCP Nurse Practitioner Family; Visit Provider Internal Medicine Nephrology | DX: N18.31 Chronic kidney disease, stage 3a (principal); I12.9 Hypertensive chronic kidney disease with stage 1 through stage 4 chronic kidney disease, or unspecified chronic kidney disease; E85.9 Amyloidosis, unspecified; Z90.5 Acquired absence of kidney | CPT/HCPCS: 99212 ==